=== PATIENT | female | born 1980 | race Caucasian/White ===

== ENCOUNTER 2017-02-14 14:15 | Emergency (ER) | payer OTHER ==
[~2017-02-14 14:15] MED LIST: FLONASE NAS; KAPIDEX30 MG PO; ZOLOFT25 MG PO
== END 2017-02-14 16:22 | disposition home or self-care (01) ==
LOC: ER 14:15
DX: S46.911A Strain of unspecified muscle, fascia and tendon at shoulder and upper arm level, right arm, initial encounter (principal); Z88.2 Allergy status to sulfonamides; Z88.1 Allergy status to other antibiotic agents; Z79.899 Other long term (current) drug therapy; X58.XXXA Exposure to other specified factors, initial encounter
CPT/HCPCS: 73030-RT; 99283